=== PATIENT | female | born 1940 | race Caucasian/White ===

== ENCOUNTER 2017-01-12 05:52 | Day surgery (SDC) | payer MEDICARE, MEDICAID ==
[~2017-01-12] VITALS: Ht 157.5 cm; Wt 110.7 kg
[2017-01-12] VITALS (13 sets, daily range): BP systolic 67–135; BP diastolic 37–72; PULSE 70–86; RESP 13–24; O2SAT 92–99
[~2017-01-12 05:52] MED LIST: ACET325C PO; ADV250INH IH; ATRV10T PO; CHOL100045 PO; CITA10TA14 PO; CLOP75TA3 PO; EUCA170O5 TP; FURO-129 PO; GLPZ5T PO; INSU100I13 SUBQ; LISI-571 PO; Lactated Ringer's 1,000 ML IV SCH; METF1000 PO; MULT-432 PO; POLY17PO6 PO; RANI150C4 PO
[2017-01-12] MEDS ORDERED: fentaNYL-PF 50 mCg/mL 2 mL Inj ONE (05:53)
[2017-01-12] MEDS ORDERED: Propofol 10,000 mCg/mL 20 mL Inj ONE (05:53)
[2017-01-12] MEDS ORDERED: Phenylephrine/NS-PF 100 mCg/mL 5 mL Syringe IVPUSH ONE (05:53)
[2017-01-12] MEDS ORDERED: Lactated Ringer's 1,000 ML IV ONE (07:10)
[2017-01-12] MEDS: CeFAZolin Inj 2 GM in IV Premix 1 EACH IV ONE ×2 (07:14→07:52)
--- NOTE | 2017-01-12 07:24 | PCM.HPANE ---
Patient Data Surgeon Admitting Provider: Attending Provider:Jose Luis Gonsales MD Primary Care Physician:Claudette Johnson MD Other Provider:[facility] Reason for Visit Open Wound Of Right Thumb Ht/WT & BMI Height (Feet): 5 Height (Inches): 2 Weight (Kilograms): 110.677 Body Mass Index 44.00 Allergies Coded Allergies: No Known Allergies (Verified , 01/11/17) Past Anesthesia History Anesthesia History: Denies:: Anesthesia Reactions, Malignant Hyperthermia Diabetes History Hx Diabetes?: Yes Type of Diabetes: Type II Glycemic Control: Oral Medication MRSA MRSA: No Medications Blood Thinner: Plavix Hypertension Medication: Yes (LASIX,LISINOPRIL) Reported Medications Eucalyptus Oil/Menthol/Camphor (Vicks Vaporub Ointment)1.2 %-2.6 %-4.8 % Oint...g.170 Gm TP PRN TO TOENAILS 01/11/17 Polyethylene Glycol 3350 (Miralax)17 Gm Powd.pack17 Gm PO DAILY 01/11/17 Metformin (Glucophage)1,000 Mg Tablet1,000 Mg PO BID Ref 0 01/11/17 Insulin Glargine (Lantus U100 Solostar Insulin Pen)100 Unit/1 Ml Insuln.pen15 Unit SUBQ QAM #1 PENINJ Ref 0 01/11/17 Citalopram Hydrobromide (Celexa)10 Mg Kvxoph33 Mg PO DAILY Ref 0 01/11/17 Cholecalciferol (Vitamin D3) (Vitamin D)1,000 Unit Capsule1,000 Unit PO DAILY # 1 BOTTLE Ref 0 01/11/17 Ranitidine 150 Mg Tevbhmg529 Mg PO DAILY Ref 0 01/11/17 Clopidogrel Bisulfate (Plavix)75 Mg Wlcodf44 Mg PO DAILY 30 Days Ref 0 01/11/17 Multivitamin W-Minerals/Lutein (Pub Multivitamin 50 Plus Tab)1 Each Tablet1 Each PO DAILY 01/11/17 Lisinopril 5 Mg Tablet5 Mg PO DAILY #30 TABLET Ref 0 01/11/17 Glipizide 5 Mg Tablet5 Mg PO BID 30 Days 01/11/17 Furosemide (Lasix)20 Mg Umgvap16 Mg PO DAILY 30 Days Ref 0 01/11/17 Atorvastatin (Lipitor)10 Mg Tab10 Mg PO DAILY Ref 0 01/11/17 Fluticasone/Salmeterol (Advair 250-50 Diskus)60 Puff/Inh Disk1 Puff IH BID #1 DISK Ref 0 01/11/17 Acetaminophen 325 Mg Tcicqju442-882 Mg PO Q4H PRN PRN 01/11/17 Discontinued Reported Medications Atorvastatin-Expunged Drug, Do Not Renew! 20 Mg Tablet5 Mg PO DAILY 03/10/13 Citalopram-Expunged Drug, Do Not Renew! 10 Mg Ssaleu48 Mg PO DAILY 03/10/13 Furosemide-Expunged Drug, Do Not Renew! 20 Mg Bbcrsq62 Mg PO DAILY 03/10/13 Discontinued Scripts Nystatin (Mycostatin Powder)15 Gm Powd1 Appl TOP TID #10 GM Prov:Royal Araiza MD 11/20/12 Cephalexin-Expunged Drug, Do Not Renew! (Keflex-Expunged Drug, Do Not Renew!) 500 Mg Oifipqa424 Mg PO QID #16 Prov:Royal Araiza MD 11/20/12 Docusate Sod-Expunged Drug, Do Not Renew! 250 Mg Ncxnloz999 Mg PO BID PRN #30 Prov:Royal Araiza MD 11/20/12 Acetaminophen-Expunged Drug, Do Not Renew! (Tylenol-Expunged Drug, Do Not Renew! )325 Mg Tablet Po Q6hp Prn #60 Prov:Royal Araiza MD 11/20/12 Clopidogrel-Expunged Drug, Do Not Renew! (Plavix-Expunged Drug, Do Not Renew!) 75 Mg Vqeljt31 Mg PO DAILY #14 Prov:Royal Araiza MD 11/20/12 History History of ENT Problems?: Yes HEENT History: Denies:: Abnormal Airway Cataracts Difficult Intubation Dysphagia Glaucoma Hearing Problem Sinus Problem TMJ Denture Type: Full- Upper Partial- Lower Teeth Condition: Tooth Decay Missing Teeth Other HEENT Pertinent History: hx of parotitis Hx of Heart Problems?: Yes Cardiovascular History: Positive for:: Edema (CHRONIC) Hypertension (HYPERLIPIDEMIA) Peripheral Vascular (S/P RT CAROTID ENDARTERECTOMY) Denies:: Cardiac Surgery Chest Pain Congestive Heart Failure Heart Murmur Irregular Heartbeat Pacemaker Thrombophlebitis Other History/Comments Cardiac ROS negative, negative cardiac history Hx of Respiratory Problem?: Yes Respiratory History: Positive for:: Asthma (OCC. USE OF ALBUTEROL INHALER) Dyspnea Use of Inhalers / NEBS Denies:: COPD Chest Surgery Emphysema Hemoptysis Pneumonia Tuberculosis Use of C-PAP Machine Other History/Comment Home O2, on MDI, unable to remember last use Hx Neurologic Problems?: Yes Neurological History: Positive for:: Alzheimer's Disease CVA (MARCH AND JUN 2007, 2007) Dementia Denies:: Dizziness Headaches Parkinson's Disease Seizures Other History/Comments Stroke ~ 12 years ago, with residual right sided weakness, cognitave dysfunction Hx of GI Problems?: Yes Other GI Pertinent History: S/P APPY Other History/Comment Reflux, well controlled Hx of Problems?: Yes Genitourinary History: Positive for:: Urinary Tract Infection Denies:: HX of Hemodialysis Kidney Stones HX of Peritoneal Dialysis: No Female Hx: Denies:: Currently Problems with Breasts? Skin History: Positive for:: History Skin Disorders? (HX CELLULITIS RT LEG S /P SKIN GRAFT RT LEG) Denies:: Pressure Ulcers Hx Musculoskeletal Problems?: Yes Musculoskeletal History: Denies:: Joint Replacement Hx of Psycho/Social Problems?: No Hx Surgeries?: Yes (HYST,APPY,RT CEA,RT LEG SKIN GRAFT) Hx Any Other Health Problems?: Yes Other History: Positive for:: Hospitalization (FOR STROKES AND SURGERIES) Denies:: Cancer Endocrine Disease Thyroid Disease History Blood Transfusions: Denies:: Blood Transfuse Reaction Blood Transfusions Hx Diabetes: Yes Hx Alcohol Use: Yes (OCC.)Hx Substance Use: NoHave You Smoked inLast 12 mo: Yes Stop/Bang Treated for Sleep Apnea?: No Do You Have a CPAP Machine?: No S-Snoring: Do You Snore Loudly: No T-Tired: feel tired, fatigued: No O-Obsered: Observed not breath: No P-Blood Pressure: treated: Yes B- Body Mass Index > 35 kg/m2: Yes A- Age over 50: Yes N- Neck Large Circumference: Yes G- Gender Male: No ANA MARIA Total Score: 4 Risk Assessment Category Category 1A: Patient has history of documented sleep apnea, and HAS NOT received any narcotic, sedative or anesthesia administration during this stay. Category 1B: Patient has history of documented sleep apnea, and HAS received any narcotic , sedative or anesthesia administration during this stay Category 2: Patient has SUSPECTED Obstructive Sleep Apnea, and HAS received any narcotic , sedative or anesthesia administration during this stay. Category 3: Patient has SUSPECTED Obstructive Sleep Apnea and HAS NOT received narcotic, sedative or anesthesia administration during this stay. Category 4: Outpatient in Procedural Areas with known sleep apnea or who screen positive for High Risk via the STOP/BANG questionnaire. Exam Exam General Appearance: Alert, Cooperative HEENT/AIRWAY: MP 2 Lungs: Clear to Auscultation, Normal Air Movement Heart: Exam Unremarkable, Regular Rate/Rhythm, Normal S1, Normal S2 Meds/Labs/Diagnostics Admission Meds Current Medications Lactated Ringer's (Lr) 1,000 ml @ ud STK-MED ONCE IV Last administered on 01/12t 07:10; Start 01/12/17 at 07:10; Stop 01/12/17 at 07:11; Status DC Plan Impression Patient chart reviewed, patient interviewed and anesthestic plan with risks, benefits, and alternatives discussed, and informed consent obtained. ASA Physical Status: ASA4 Life Threatening Anesthetic Plan: GA Bene/Risks/Altern/Consents: Yes HP Complete Prior to Induction: Yes Kenny Acevedo MD Jan 12, 2017 07:24
[2017-01-12] MEDS ORDERED: Bupivacaine-MPF 0.25% 30 mL Inj INFILTRATE ONE (08:09)
[2017-01-12] MEDS ORDERED: HYDROcodone-APAP 5-325 mg Tablet PO PRN (09:15)
[2017-01-12] MEDS ORDERED: Insulin Human REGular-Omnicell 100 Unit/mL ONE (09:26)
[2017-01-12] MEDS ORDERED: Lactated Ringer's 500 ML IV PRN (10:04)
[2017-01-12] MEDS ORDERED: Lactated Ringer's 1,000 ML IV SCH (10:04)
[2017-01-12] MEDS ORDERED: Insulin Human REGular-Omnicell 100 Unit/mL SUBQ ONE (10:05)
[2017-01-12] MEDS ORDERED: HYDROmorphone 1 mg/mL Inj IVPUSH PRN (10:05)
[2017-01-12] MEDS ORDERED: EPHEDrine Sulfate 50 mg/mL Inj IVPUSH PRN (10:05)
[2017-01-12] MEDS ORDERED: MetoCLOpramide 5 mg/mL 2 mL Inj IVPUSH PRN (10:05)
[2017-01-12] MEDS ORDERED: Dexamethasone 4 mg/mL Inj IVPUSH PRN (10:05)
[2017-01-12] MEDS ORDERED: fentaNYL-PF 50 mCg/mL 2 mL Inj IVPUSH PRN (10:05)
[2017-01-12] MEDS ORDERED: Phenylephrine 10,000 mCg/mL Inj IVPUSH PRN (10:05)
[2017-01-12] MEDS ORDERED: Ondansetron 2 mg/mL 2 mL Inj IVPUSH PRN (10:05)
--- NOTE | 2017-01-12 10:10 | PCM.ANEP1 ---
Post Anesthesia PACU Phase 1 Assessment Vital Signs Vital Signs Date Time Temp Pulse Resp B/P Pulse Ox O2 Delivery O2 Flow Rate FiO2 01/12/17 09:55 84 16 118/59 95 Nasal Cannula 3 01/12/17 09:40 82 23 113/55 Nasal Cannula 3 01/12/17 09:35 81 22 120/55 99 Simple Mask 10 01/12/17 09:30 81 23 106/46 99 Simple Mask 10 01/12/17 09:25 36.3 80 19 108/49 99 Simple Mask 10 01/12/17 09:20 80 13 111/53 96 Simple Mask 10 01/12/17 09:15 76 19 107/47 98 Simple Mask 10 01/12/17 09:10 71 24 95/47 97 Simple Mask 10 01/12/17 09:05 35.5 70 23 67/37 92 Simple Mask 10 01/12/17 07:20 36.1 78 22 112/72 95 Room Air Anesthetic Administered: GA Level of Alertness: Sleepy, easy to arouse SEGURA's with Equal Strength: Yes Pain: No Nausea or Vomiting: No CV Function & Hydration Stable: No Airway Device: Oxygen Delivery: Simple Mask Lungs: Clear to Auscultation, Normal Air Movement Dermatome Level: Full Sensation PACU Phase 2 Assessment Complications: No Follow up Care: N/A Patient Instructions Provided: N/A Kenny Acevedo MD Jan 12, 2017 10:10
--- NOTE | 2017-01-18 01:11 | OP ---
[address] [address] OPERATIVE REPORT PATIENT: SAULO BARBOSA : 1940 MR#: [id number] ADMIT: 01/12/2017 JOB ID: [id number] DATE OF SURGERY: 01/12/2017 PREOPERATIVE DIAGNOSIS(ES): 1. Right upper extremity spasticity. 2. Right thumb deformity and contracture with open wound. 3. 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 POSTOPERATIVE DIAGNOSIS(ES): 1. Right upper extremity spasticity. 2. Right thumb deformity and contracture with open wound. 3. 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 PROCEDURE: 1. Right thumb flexor pollicis longus tenotomy. 2. Extensor pollicis longus tenotomy. 3. Excision of right thumb right thumb wound 7 mm. 4. Simple closure of right thumb wound 1 cm. 5. Percutaneous fixation of right thumb IP joint in a usable position. 6. Right index finger Barrientos tenotomy (tenotomy of right index finger central slip). SURGEON: Attending: Jose Luis Gonsales MD. PLASTIC TUBING INSULATION SUPERVISOR: None. ANESTHESIA: General anesthesia. COMPLICATIONS: None apparent. SPECIMEN: None. INDICATIONS FOR PROCEDURE: This is a 76-year-old female patient with a history of cerebrovascular accident leading to right-sided spasticity with significant finger deformities. Patient has significant flexion contracture of the thumb MP joint and hyperextension of the IP joint leading to erosion of the volar skin and formation of a wound at the volar thumb IP joint. The patient also has chronic mallet finger of the index finger causing deformity and interfering with activities. At this point, correction of the deformities with tenotomies, as well as excision of the wound if indicated. I will also attempt to fixate the IP joint in a more normal position, again, to improve the deformity. PROCEDURE AND FINDINGS: The patient was identified in the preoperative area. Surgical site was marked. The patient was then taken back to the operating room and placed supine on the operating table. Appropriate time-outs were taken. General anesthesia was induced smoothly. The patient was then prepped and draped in the usual sterile manner. The patient's right upper extremity was then exsanguinated and tourniquet inflated to 250 mmHg. I then performed a radial sensory nerve block around the radial styloid. I also infiltrated local anesthesia to the index and thumb around the neurovascular bundle. This was done with 0.25% Marcaine. I first turned my attention to the right thumb. The patient has an open wound at interphalangeal crease approximately 7-8 mm in size. Flexor pollicis longus tendon can be seen exposed at the base of this wound. Using a Veguita elevator I was able to access the plane between the flexor pollicis longus and the bone. This was traced to the insertion of the adductor pollicis longus just distal to the wound. The flexor pollicis longus was incised at this location. I then turned my attention to the metacarpophalangeal crease. A small transverse incision was made with a #15 blade. Incision was deepened down to the underlying flexor pollicis longus tendon. The tendon was incised at this point. The tendon fragment was then removed through the distal incision. I then examined the metacarpophalangeal joint. There is significant contracture with shortening of the ligamentous structure in this area. Using a #15 blade I incised through the volar aspect of the collateral ligament allowing extension of the MP joint to a more normal position. Once this has been done, I turned my attention to the dorsal aspect of the thumb. A longitudinal incision was made over the proximal aspect of the proximal phalanx over the extensor pollicis longus tendon. The incision was then deepened down to the extensor pollicis longus tendon. The tendon was then incised with a #15 blade. Once this has been done, I was able to flex the IP joint into a more normal position. It was noted that IP joint was quite eroded with minimal amount of cartilage left. A 0.062 K-wire was then driven through the dorsum of the proximal phalanx at its mid shaft. This was driven through the interphalangeal joint into the distal phalanx holding the distal phalanx at approximately 20 degrees. Once this has been done, a 0.045 K-wire was also driven in a parallel fashion across the IP joint. Once this has been done, the position of the K-wires were checked with multiple views using fluoroscopy and was felt to be adequate. The pins were cut and bent. They were then rotated to be flush with the bone. Once this has been done, I turned my attention to the index finger. A mid radial incision was then made over the proximal interphalangeal joint. This was done with a 15 blade. Incision was then deepened down to the underlying extensor apparatus. The extensor apparatus was then gently elevated off of the periosteum proximally. Once this has been done, I was able to access the insertion for the central tendon. Using a #15 blade the insertion was completely cut while preserving the lateral band on either side. Once this has been done, the PIP joint was able to be flexed fully. At this point, tourniquet was released and hemostasis was obtained with electrocautery. The incisions were then reapproximated using several 4-0 nylon horizontal mattress sutures on the volar aspect of the thumb. The dorsal incisions were reapproximated with 4-0 nylon simple running suture. The patient tolerated the procedure well. Needle count, sponge count, instrument counts were correct at end of procedure. The patient was then placed into a small thumb dorsal blocking splint keeping the IP joint protected and in slight flexion. The patient was transported to recovery extubated in a stable condition. FARHAT
== END 2017-01-12 23:59 | disposition home or self-care (01) ==
LOC: SAS 05:52
PROVIDERS: ATTEND Plastic Surgery
DX: S61.001A Unspecified open wound of right thumb without damage to nail, initial encounter (principal); M20.011 Mallet finger of right finger(s); M24.541 Contracture, right hand; R25.2 Cramp and spasm; I69.30 Unspecified sequelae of cerebral infarction; G30.1 Alzheimer's disease with late onset; F02.81 Dementia in other diseases classified elsewhere, unspecified severity, with behavioral disturbance; J44.9 Chronic obstructive pulmonary disease, unspecified; E11.9 Type 2 diabetes mellitus without complications; I10 Essential (primary) hypertension; E78.5 Hyperlipidemia, unspecified; I51.7 Cardiomegaly; E66.01 Morbid (severe) obesity due to excess calories; Z68.41 Body mass index [BMI] 40.0-44.9, adult; Z79.51 Long term (current) use of inhaled steroids; Z79.02 Long term (current) use of antithrombotics/antiplatelets; Z79.84 Long term (current) use of oral hypoglycemic drugs
CPT/HCPCS: 26426; 26455; 26460; 26540; 26776; J0690; J1815; J2370; J3010; J7120